=== PATIENT | female | born 1965 | race Caucasian/White ===

== ENCOUNTER 2022-07-24 08:04 | Day surgery (SDC) | payer BC ==
[2022-07-21 10:13] LABS: BASOPHILS # (AUTO) 0.1 X10'3 (0-0.2); BASOPHILS % (AUTO) 1.1 % (0-1); EOSINOPHILS # (AUTO) 0.1 X10'3 (0-0.9); EOSINOPHILS % (AUTO) 2.2 % (0-6); LYMPHOCYTES # (AUTO) 1.8 X10'3 (1.1-4.8); LYMPHOCYTES % (AUTO) 34.5 % (21-51); MEAN CORPUSCULAR HGB CONC 33.7 g/dL (33.0-36.5); MEAN CORPUSCULAR VOLUME 88.9 FL (78-98); MEAN PLATELET VOLUME 9.2 FL (7.4-10.4); MONOCYTES # (AUTO) 0.4 X10'3 (0-0.9); MONOCYTES % (AUTO) 6.8 % (2-12); NEUTROPHILS % (AUTO) 55.4 % (42-75); PRE OP HEMOGLOBIN 12.1 g/dL (12.0-16.0); PRE OP PLATELET COUNT 181 X10'3 (140-440); RED BLOOD COUNT 4.05 X10'6 (4.20-5.60); RED CELL DISTRIBUTION WIDTH 14.2 % (11.5-14.5)
[2022-07-21 10:16] LABS: CLARITY,URINE CLEAR (Clear); COLOR,URINE YELLOW (Yellow); GLUCOSE, URINE NEGATIVE (Neg); KETONES,URINE NEGATIVE (Neg); LEUKOCYTE ESTERASE ,URINE TRACE (Neg); NITRITES, URINE NEGATIVE (Neg); OCCULT BLOOD,URINE NEGATIVE (Neg); PROTEIN,URINE NEGATIVE (Neg); UROBILINOGEN,URINE 0.2 E.U/dL (0.2-1.0)
[2022-07-21 10:17] LABS: UA COLLECTION TYPE CLN CATCH MIDSTREAM
[2022-07-21 10:21] LABS: SQUAMOUS EPITHELIAL CELL,UR FEW /LPF (FEW)
[2022-07-21 10:22] LABS: BACTERIA,URINE FEW /HPF (Neg); RBC,URINE 0-2 /HPF (0-2); WBC,URINE 0-4 /HPF (0-4)
[2022-07-21 10:39] LABS: ALBUMIN 3.7 G/DL (3.4-5.0); ALBUMIN/GLOBULIN RATIO 1.3 (1.1-1.5); ALKALINE PHOSPHATASE 80 IU/L (46-116); BLOOD UREA NITROGEN 20 MG/DL (7-18); BUN/CREATININE RATIO 25.6 (10.0-20.0); CHLORIDE 108 MMOL/L (99-107); CREATININE 0.78 MG/DL (0.40-0.90); PRE OP ALT 25 U/L (30-65); PRE OP ANION GAP 8 (8-16); PRE OP AST 17 U/L (10-37); PRE OP BILIRUB, TOTAL 0.3 MG/DL (0.0-1.0); PRE OP GLUCOSE 100 MG/DL (70-104); PRE OP POTASSIUM 4.1 MMOL/L (3.4-5.1); PRE OP SODIUM 141 MMOL/L (135-145); TOTAL CARBON DIOXIDE 25.5 MMOL/L (24-32); TOTAL PROTEIN 6.6 G/DL (6.4-8.2); eGFR 76 ML/MIN
[2022-07-24] VITALS (11 sets, daily range): BP systolic 118–152; BP diastolic 69–85
[~2022-07-24] VITALS: Ht 160 cm; Wt 71.6 kg
[~2022-07-24 08:04] MED LIST: GABA300C PO; LISI20TA28 PO; cefazolin 2gm/D5W 100mL 100 ML IV ONE; famotidine 20mg tablet PO ONE; ringers solution, lacted 1,000 ML IV SCH
[2022-07-24] MEDS ORDERED: BUPIVAcaine/PF 2.5 mg/ml (0.25%) 30ml vial ONE (11:08)
[2022-07-24] MEDS ORDERED: bacitracin 15gm ointment TP ONE (11:08)
[2022-07-24] MEDS ORDERED: sevoflurane 250ml liquid IH ONE (11:32)
[2022-07-24] MEDS ORDERED: propofol inj 20 ML IV ONE (11:34)
[2022-07-24] MEDS ORDERED: fentaNYL/PF 50MCG/1 ML 2ML syringe ONE (11:34)
[2022-07-24] MEDS ORDERED: midazolam 1 mg/ML 2ml injection ONE (11:34)
[2022-07-24] MEDS ORDERED: dexamethasone sod phosphate 4mg/ml inj. ONE (12:04)
[2022-07-24] MEDS ORDERED: BUPIVAcaine/PF 2.5 mg/ml (0.25%) 30ml vial IJ ONE (12:09)
[2022-07-24] MEDS ORDERED: ondansetron/PF 4mg/2ml inj ONE (12:42)
--- NOTE | 2022-07-24 12:56 | NUR ---
Received from OR via [facility], accompanied by Anesthesiologist MOLLY and report given by Anesthesiolgist. PATIENT WITH 20G PIV IN RIGHT UE RUNNING LR AT 100. DENIES PAIN AT THIS TIME. RIGHT FOOT DRESSING IS CDI AT THIS TIME. NO DRAINAGE PRESNET. + CSM AND NO DRAINAGE. Addendum: 07/24/22 at 1307 by Eliazar Saumels RN, RN Amended: Links added.
[2022-07-24] MEDS ORDERED: ringers solution, lacted 1,000 ML IV SCH (14:20)
[2022-07-24] MEDS ORDERED: meperidine/PF 25mg/ml syringe IV PRN ×3 (14:20)
[2022-07-24] MEDS ORDERED: ondansetron/PF 4mg/2ml inj IV PRN (14:20)
[2022-07-24] MEDS ORDERED: proCHLORperazine 10 MG/2 ml inj IV PRN (14:20)
[2022-07-24] MEDS ORDERED: morphine 4 MG/ML inj SYRINge IV PRN (14:20)
[2022-07-24] MEDS ORDERED: morphine 2 MG/ML inj. syringe IV PRN (14:20)
--- NOTE | 2022-07-24 14:26 | NUR ---
ALL DISCHARGE CRITERIA HAS BEEN MET. VSS, PAIN AT A TOLERABLE LEVEL, ABLE TO SAFELY AMBULATE WITH SURGICAL BOOT AND TRANSFER SELF. IV TAKEN OUT WITHOUT ANY COMPLICATIONS. ALL DISCHARGE INSTRUCTIONS COVERED WITH PATIENT AND ALL QUESTIONS ANSWERED. PATIENT TAKEN OUT VIA WHEELCHAIR WITH ALL BELONGINGS TO PERSONAL VEHICLE WHERE FAMILY DROVE PATIENT HOME. Addendum: 07/24/22 at 1438 by Ryan Magana RN Amended: Links added.
== END 2022-07-24 14:26 | disposition home or self-care (01) ==
LOC: PAS 08:04
PROVIDERS: ATTEND Podiatrist Foot & Ankle Surgery
DX: M20.21 Hallux rigidus, right foot (principal); M19.071 Primary osteoarthritis, right ankle and foot; M19.072 Primary osteoarthritis, left ankle and foot; I10 Essential (primary) hypertension; M20.5X1 Other deformities of toe(s) (acquired), right foot; Z79.899 Other long term (current) drug therapy; Z90.49 Acquired absence of other specified parts of digestive tract; Z98.890 Other specified postprocedural states
CPT/HCPCS: 28750; 36415; 73620; 80053; 81001; 82948; 85025; 87088; 93005; A6223; C1713; J0690; J1100; J2250; J2405; J2704; J3010; J3490; J7030; J7120; Z7506; Z7508; Z7512; 76000; A4215; A4618; A6449; A7000